=== PATIENT | male | born 1970 | race Caucasian/White ===

== ENCOUNTER 2017-07-13 12:07 | Emergency (ER) | payer BC ==
[~2017-07-13] VITALS: Ht 170.2 cm; Wt 99.7 kg
[2017-07-13 13:06] LABS: HEMATOCRIT 46.4 % (38.0-50.0); HEMOGLOBIN 16.4 G/DL (12.5-16.6); MCH 30.7 PG (29.0-34.0); MCHC 35.3 G/DL (30.0-36.0); MCV 86.9 FL (86-99); PLATELET COUNT 242 K/uL (156-360); RBC DIS.WIDTH-CV 12.2 % (11.8-14.6); RBC DIS.WIDTH-SD 38.5 % (39-53); RED BLOOD COUNT 5.34 M/uL (4.00-5.50); WHITE BLOOD COUNT 6.7 K/uL (4.1-10.2)
[2017-07-13 13:14] LABS: ALBUMIN 4.2 g/dL (3.2-4.8); CHLORIDE 110 mEq/L (99-109); SODIUM 142 mEq/L (136-147)
[2017-07-13 13:17] LABS: GLUCOSE 99 mg/dL (70-99); TOTAL PROTEIN 7.6 g/dL (6.4-8.3)
[2017-07-13 13:19] LABS: TOTAL BILIRUBIN 0.7 mg/dL (0.0-1.0)
[2017-07-13 13:20] LABS: ALKALINE PHOSPHATASE 94 IU/L (3-129); CREATININE 0.9 mg/dL (0.6-1.3)
[2017-07-13 13:21] LABS: UREA NITROGEN (BUN) 17 mg/dL (9-23)
[2017-07-13 13:22] LABS: AST (GOT) 18 IU/L (2-34)
[2017-07-13 13:23] LABS: ALT (GPT) 27 IU/L (3-49)
[2017-07-13 13:24] LABS: GFR ESTIMATE (CALCULATED) > 59 mL/min/ (58.99-99999)
[2017-07-13 14:01] LABS: APPEARANCE CLEAR ((CLEAR)); BILIRUBIN NEGATIVE; BLOOD NEGATIVE; COLOR YELLOW ((YELLOW)); GLUCOSE (STRIP) NEGATIVE; KETONES NEGATIVE; LEUKOCYTES NEGATIVE; NITRITE NEGATIVE; PROTEIN (STRIP) 30; SPECIFIC GRAVITY 1.031 (1.000-1.030); UCUL ADDED? NO; UROBILINOGEN 0.2 MG/DL (0.2-1.0)
[2017-07-13 14:54] LABS: C DIFF TOXIN NEGATIVE (NEGATIVE)
[2017-07-13] MEDS ORDERED: LEVSIN0.125 MG PO (15:10)
[2017-07-13] MEDS ORDERED: REGLAN10 MG PO (15:10)
[2017-07-13 15:33] VITALS: BP 135/89
== END 2017-07-13 15:35 | disposition home or self-care (01) ==
LOC: EME 12:07
PROVIDERS: Nurse Practitioner Family
DX: R19.7 Diarrhea, unspecified (principal); R19.5 Other fecal abnormalities; N20.0 Calculus of kidney
CPT/HCPCS: 74177; 80053; 81003; 83630; 85027; 87177; 87329; 87493; 87506; 99281; 99285; J7030